=== PATIENT | female | born 1970 | race Caucasian/White ===

== ENCOUNTER 2019-10-07 07:09 | Day surgery (SDC) | payer OTHER ==
[~2019-10-07] VITALS: Ht 157.5 cm; Wt 81.7 kg
[~2019-10-07 07:09] MED LIST: ATENOLOL25 MG PO; ATORVASTATIN CA80 MG PO; B-125000 MC1 PO; COUMADIN5 MG PO; FENOFIBRATE160 MG PO; FOLTABS 800 TA1 EACH PO; IBUPROFEN200 MG PO; LEVOTHYROXINE75 MCG PO; LISINOPRIL2.5 MG PO; LISINOPRIL5 MG PO; METOPROLOL SUCC25 MG PO; NORCO 5-325 TA1 EACH PO; OMEPRAZOLE20 MG PO; POLYTRIM EYE DR10 ML OU; SPORANOX100 MG PO; TERBINAFINE HC250 MG PO; VITAMIN B-6100 MG PO; VITAMIN D350 MCG PO; WARFARIN SODIU2.5 MG PO
--- NOTE | 2019-10-07 08:32 | NUR ---
10/07/19 0832 Marina Ryan 0828 PATIENT ARRIVES TO PACU SLEEPING. OPENS EYES WITH VERBAL STIMULI, ANSWERS QUESTIONS THEN BACK TO SLEEP. RESP EVEN AND UNLABORED, NC AT 2 LITERS.
--- NOTE | 2019-10-07 19:09 | OR ---
[facility] [address] [place], [place] [address] Signed DATE OF OPERATION: 10/07/2019 SURGEON: Chi Golden MD PREOPERATIVE DIAGNOSIS: Screening. POSTOPERATIVE DIAGNOSES: 1. 4 mm polyp at 7 cm. 2. 6 mm polyp at 10 cm. 3. 4 mm polyp at 12 cm. 4. 8 mm polyp, proximal right colon. 5. 4 mm polyp, distal right colon. 6. 4 mm polyp at 70 cm. PROCEDURE: Colonoscopy without biopsy. ESTIMATED BLOOD LOSS: None. INDICATIONS: Dayana is a 49-year-old female who presents for her initial screening colonoscopy. She has no lower GI complaints. There is no family history of colon cancer or polyps. Her boyfriend has been through this previously, so she is somewhat familiar with the process. In the office, I had given her a pamphlet on colonoscopy and we looked at that together along with the risks including, but not limited to gas, bloating, crampy abdominal pain, bleeding, perforation requiring surgery, and missed diagnosis. We also discussed the need for IV conscious sedation. She had expressed understanding and wished to proceed. PROCEDURE NOTE: Dayana was taken into our endoscopy suite and placed in the left lateral decubitus position. She was given IV sedation with 8 mg of Versed and 100 mcg of fentanyl. A digital rectal exam was performed and this was unremarkable. The adult colonoscope was introduced and advanced under direct visualization of camera without difficulty. We could easily see the appendiceal orifice and the ileocecal valve. Her prep was quite good. The scope was slowly withdrawn. The above-mentioned polyps were easily removed with the help of hot biopsy forceps. There was no diverticulosis. The scope had been retroflexed in the rectum. There was no additional pathology noted above the anal Electronically Signed By: CHI GOLDEN MD 10/07/19 1909 PATIENT NAME: DAYANA WRIGHT OPERATIVE REPORT DATE OF : 66 REPORT #: [id number] PHYSICIAN: CHI GOLDEN MD PCP: SYDNEE ALCANTARA MD REPORT IS CONFIDENTIAL AND NOT TO BE RELEASED WITHOUT AUTHORIZATION [facility] [address] [place], [place] [address] Signed canal. After this, the gas was suctioned out and colonoscope removed. Dayana tolerated the procedure quite well. RECOMMENDATIONS: I will see Dayana back in my office in 7 to 14 days to review her results. She can resume the Coumadin in one week. Chi Golden MD ALB/MARIBELL /[id number] cc: Sydnee Alcantara MD Copies: SYDNEE ALCANTARA MD ~ Electronically Signed By: CHI GOLDEN MD 10/07/19 1909 PATIENT NAME: DAYANA WRIGHT OPERATIVE REPORT DATE OF : 66 REPORT #: [id number] PHYSICIAN: CHI GOLDEN MD PCP: SYDNEE ALCANTARA MD REPORT IS CONFIDENTIAL AND NOT TO BE RELEASED WITHOUT AUTHORIZATION
--- NOTE | 2019-10-08 12:18 | PATH ---
[facility] [address] [facility] [place], [place] [address] Signed SPECIMEN(S): A COLON POLYP AT 7 CM SPECIMEN(S): B COLON POLYP AT 10 CM SPECIMEN(S): C PROXIMAL ASCENDING POLYP SPECIMEN(S): D DISTAL ASCENDING POLYP SPECIMEN(S): E COLON POLYP AT 70 CM SPECIMEN(S): F COLON POLYP AT 12 CM SPECIMEN SOURCE: A. COLON POLYP AT 7 CM B. COLON POLYP AT 10 CM C. PROXIMAL ASCENDING POLYP D. DISTAL ASCENDING POLYP E. COLON POLYP AT 70 CM F. COLON POLYP AT 12 CM CLINICAL HISTORY: Screening colonoscopy. DX: Colon/rectal polyps. MICROSCOPIC DESCRIPTION: Histologic sections of all submitted blocks are examined by light microscopy. These findings, together with the gross examination, support the pathologic diagnosis. FINAL PATHOLOGIC DIAGNOSIS: A. Colon, polyp at 7 cm, polypectomy: - Hyperplastic polyp. - Negative for dysplasia or malignancy. B. Colon, polyp at 10 cm, polypectomy: - Hyperplastic polyp. - Negative for dysplasia or malignancy. C. Colon, proximal ascending, polyp, polypectomy: - Tubular adenoma. - Negative for high-grade dysplasia or malignancy. D. Colon, distal ascending, polyp, polypectomy: - Colonic mucosa with no histopathologic abnormality. - Negative for dysplasia or malignancy. E. Colon, polyp at 70 cm, polypectomy: - Colonic mucosa with no histopathologic abnormality. - Negative for dysplasia or malignancy. F. Colon, polyp at 12 cm, polypectomy: - Hyperplastic polyp. - Negative for dysplasia or malignancy. PATIENT NAME: RHIANNON WRIGHT PATHOLOGY DATE OF : 66 REPORT #: [id number] PHYSICIAN: SARMAD HOFFMAN PCP: SYDNEE YUAN MD REPORT IS CONFIDENTIAL AND NOT TO BE RELEASED WITHOUT AUTHORIZATION [facility] [address] [place], [place] [address] Signed NAL:cml:C2NR GROSS DESCRIPTION: Six specimens are received in six containers, labeled "SC." A. The specimen, labeled "SC, colon polyp at 7 cm," is received in formalin and consists of one chávez soft tissue fragment that measures 0.2 cm in greatest dimension. The specimen is entirely submitted in cassette (A1). B. The specimen, labeled "SC, colon polyp at 10 cm," is received in formalin and consists of one chávez soft tissue fragment that measures 0.2 cm in greatest dimension. The specimen is entirely submitted in cassette (B1). C. The specimen, labeled "SC, proximal ascending colon polyp," is received in formalin and consists of two chávez soft tissue fragments that measure 0.3 cm in greatest dimension. The specimen is entirely submitted in cassette (C1). D. The specimen, labeled "SC distal ascending colon polyp," is received in formalin and consists of one chávez soft tissue fragment that measures 0.1 cm in greatest dimension. The specimen is entirely submitted in cassette (D1). E. The specimen, labeled "SC, colon polyp at 70 cm," is received in formalin and consists of two chávez soft tissue fragments that measure 0.1 cm in greatest dimension. The specimen is entirely submitted in cassette (E1). F. The specimen, labeled "SC, colon polyp at 12 cm," is received in formalin and consists of one chávez soft tissue fragment that measures 0.1 cm in greatest dimension. The specimen is entirely submitted in cassette (F1). JS (under the direct supervision of a pathologist) The Gross Description was prepared using a voice recognition system. The report was reviewed for accuracy; however, sound-alike word errors, addition and/or deletions may occur. If there is any question about this report, please contact Client Services. PERFORMING LABORATORY: The technical component was performed by [facility] [address] (Mold Maker Helper: India Way MD; CLIA# [id number]). Professional interpretation was performed by [facility], [address] [address] (CLIA# [id number]). PATIENT NAME: RHIANNON WRIGHT PATHOLOGY DATE OF : 66 REPORT #: [id number] PHYSICIAN: SARMAD HOFFMAN PCP: SYDNEE YUAN MD REPORT IS CONFIDENTIAL AND NOT TO BE RELEASED WITHOUT AUTHORIZATION [facility] [address] [place], [place] [address] Signed Diagnostician: Dulce Brian MD Pathologist Electronically Signed 10/08/2019 Copies: ~ PATIENT NAME: RHIANNON WRIGHT PATHOLOGY DATE OF : 66 REPORT #: [id number] PHYSICIAN: SARMAD PATHOLOGY PCP: SYDNEE YUAN MD REPORT IS CONFIDENTIAL AND NOT TO BE RELEASED WITHOUT AUTHORIZATION
== END 2019-10-07 09:10 | disposition home or self-care (01) ==
LOC: OPS 07:09 → DS 07:09 → OPS 08:15
PROVIDERS: Colon & Rectal Surgery
PROC: 0DBE8ZZ Excision of Large Intestine, Via Natural or Artificial Opening Endoscopic (ICD-10-PCS; 2019-10-07)
PROC: 0DBK8ZZ Excision of Ascending Colon, Via Natural or Artificial Opening Endoscopic (ICD-10-PCS; principal; 2019-10-07 08:15)
DX: Z12.11 Encounter for screening for malignant neoplasm of colon (principal); D12.2 Benign neoplasm of ascending colon; K62.1 Rectal polyp; Z79.899 Other long term (current) drug therapy; Z79.01 Long term (current) use of anticoagulants
CPT/HCPCS: 99153; G0500; J2250; J3010

== ENCOUNTER 2019-11-08 10:53 | Day surgery (SDC) | payer OTHER ==
--- NOTE | 2019-11-08 12:20 | NUR ---
11/08/19 1220 Maya Pro 1213- PT ARRIVES TO PACU AWAKE AND TALKING. PT REPORTS NO PAIN OR NAUSEA. RESP EVEN AND UNLABORED. OXYGEN SAT HIGH 90'S TO 100% ON 2L VIA NC. 1214- OXYGEN TITRATED OFF. 1217- PT IS ABLE TO ROLL HERSELF TO HER BACK AND SAT UP IN BED. PT REPORTS NO DIZZINESS, NAUSEA, OR PAIN. PT DENIES WANTING ANYTHING TO DRINK AT THIS TIME.
--- NOTE | 2019-11-10 18:12 | PATH ---
[facility] [address] [place], [place] [address] Signed SPECIMEN(S): C COMP FLOW CYTOMETRY, BM EDTA SPECIMEN(S): A BONE MARROW - CORE SPECIMEN(S): B BONE MARROW - ASPIRATION CLINICAL HISTORY: 49-year-old woman with polycythemia. D45 (polycythemia vera) DIAGNOSIS SUMMARY: A. Peripheral blood - No significant abnormalities identified. B. Bone marrow, left, aspiration and core biopsy: - Normocellular bone marrow with mild megakaryocytic atypia. - Increased storage iron. - Mild reticulin fibrosis. - See Diagnostic Comment. DIAGNOSTIC COMMENT: The provided patient history of polycythemia is noted. Evaluation of this bone marrow specimen reveals a normocellular bone marrow with estimated overall cellularity of 50%. The megakaryocytes are mildly increased, with mild morphologic atypia. The overall morphologic findings are not diagnostic of a myeloproliferative neoplasm, although the diagnosis is not entirely excluded, and blasts are not increased. Cytogenetic and JAK2 V617F mutation analysis, with reflex testing are pending, and the results will be issued by addendum. Case discussed with Dr. Julian Sullivan on 11/10/2019 at 4:30 p.m. AIC:caw:smn:C2NR PERIPHERAL BLOOD: HEMOGRAM ([facility], 11/08/2019): WBC 6.6 K/uL, RBC 4.16 M/uL, HGB 13.9 g/dL, HCT 40.5%, MCV 97.5 fL, MCH 33 pg, MCHC 34 g/dL, RDW 13.6%, PLT 311 K/uL. MANUAL DIFFERENTIAL COUNT: Segmented neutrophils 54%, band neutrophils 1%, lymphocytes 39%, monocytes 2%, eosinophils 4%. The red blood cells are present in normal number and are normochromic and normocytic with mild anisocytosis. There is no significant poikilocytosis. The white blood cells are present in normal number and are morphologically unremarkable. Circulating blasts are not identified. Platelets are present in normal number and morphology. BONE MARROW: PATIENT NAME: RHIANNON WRIGHT PATHOLOGY DATE OF : 66 REPORT #: [id number] PHYSICIAN: SARMAD HOFFMAN PCP: SYDNEE YUAN MD REPORT IS CONFIDENTIAL AND NOT TO BE RELEASED WITHOUT AUTHORIZATION [facility] [address] [place], [place] [address] Signed BONE MARROW ASPIRATE SMEARS/TOUCH IMPRINT: The aspirate smears contain multiple particles for evaluation, and the erythroid precursors show normoblastic maturation with rare nuclear irregularity. The granulocytic precursors mature to segmented forms without overt dyspoiesis. Blasts are not increased. Megakaryocytes demonstrate variable morphology, including a few scattered small forms. BONE MARROW DIFFERENTIAL COUNT: Blasts 1%, promyelocytes 2%, myelocytes 14%, metamyelocytes 11%, band neutrophils 25%, segmented neutrophils 15%, monocytes 4%, eosinophils 2%, lymphocytes 8%, plasma cells 1%, erythroid precursors 17%, idzygji-je-qgbddgalb ratio 4.4:1. BONE MARROW CORE BIOPSY/ASPIRATE CELL BLOCK: The core biopsy demonstrates areas of aspiration artifact. Where intact, the estimated cellularity is 50%. The megakaryocytes demonstrate variable morphology and are focally clustered. The clot section contains no cellular particles for evaluation. SPECIAL STAINS: - Iron (aspirate smear): Increased storage iron, grade 4 of 4; negative for ring sideroblasts. - Iron (block B1): Scattered positivity; no cellular particles present for evaluation. - Reticulin (block A1): Mild reticulin fibrosis. The special stain controls react appropriately. IMMUNOHISTOCHEMICAL STAINS (block A1): - CD34: No increase in NY19-cnuoxlzb blasts. - CD117: Highlights scattered strongly positive mast cells without significant clustering; subset of myeloid precursors weakly positive. - CD71: Highlights erythroid precursors with predominantly preserved colony architecture. - Myeloperoxidase: Many granulocytic precursors positive. - Factor VIII: Highlights mildly increased megakaryocytes with variable size and focal clustering. AIC:caw:estefany FLOW CYTOMETRY: Bone marrow, flow cytometry: - No increase in UN07-yqfumodv blasts. - No monoclonal B-cell or aberrant T-cell population identified. - See Comment. COMMENT: Flow cytometry of this bone marrow specimen reveals no increase in TS20-cqhcaoaw blasts or immunophenotypic evidence of a non-Hodgkin lymphoid PATIENT NAME: RHIANNON WRIGHT PATHOLOGY DATE OF : 66 REPORT #: [id number] PHYSICIAN: SARMAD PATHOLOGY PCP: SYDNEE YUAN MD REPORT IS CONFIDENTIAL AND NOT TO BE RELEASED WITHOUT AUTHORIZATION [facility] [address] [place], [place] [address] Signed neoplasm. Final interpretation of these results requires correlation with morphologic and clinical findings. AIC:[facility] FLOW CYTOMETRY ANALYSIS: FLOW DIFFERENTIAL (% Total CD45 vs. SSC gating): Myeloid 80%; Lymphoid 10%; Monocyte 2%; Dim CD45/Blast: 0.8%; Cell Count: 5.1 x 10*3/uL. POPULATION ANALYSIS: BLASTS: Analysis of the dim CD45 gate demonstrates less than 1% myeloblasts by CD34/CD117. 2.4% of total events are hematogones. LYMPHOID CELLS: The lymphocyte gate comprises 10% of total events and includes 84% T-cells with a CD4:CD8 ratio of 1.3:1 and normal bean T-cell antigen expression. 9% of lymphocytes are polyclonal B-cells with a kappa:lambda ratio of 1.6:1. The remainders are NK-cells. MYELOID CELLS: The myeloid population comprises 80% of the total events. No aberrant or immature immunophenotypic expression is detected. MONOCYTES: The monocyte population comprises 2% of the total events. Monocytes are not increased. Some increased expression of CD56 is observed. PLASMA CELLS: 0.3% plasma cells are detected in the screening gate neg-dimCD45/CD38. Plasma cells are CD45 dim and positive for CD19. ANTIBODIES USED: KAPPA, LAMBDA, CD20, CD10, CD19, CD23, CD38, FMC7, CD16, CD56, CD8, CD5, CD2, CD4, CD7, CD3, CD14, CD33, CD13, HLADR, CD34, CD117, CD15, CD45: TOTAL ANTIBODIES USED: 24. JNB/DKW FINAL DIAGNOSIS PERFORMED BY: Elida Paulson MD, Pathologist Nov 10 2019 1:13PM CYTOGENETICS: Pending, to be reported by addendum. MOLECULAR / PCR: Pending, to be reported by addendum. GROSS DESCRIPTION: A. The specimen, labeled "Wright, bone core," is received in formalin and consists of four chávez bone core fragments from 0.4-0.6 cm in greatest dimension. It is submitted in cassette (A1) following decalcification in Immun[facility] for 1.5 hours. B. The specimen, labeled "Wright, clot," is received in formalin and consists of a 1.7 x 1.4 x 0.2 cm aggregate of blood clot. It is submitted entirely in cassette (B1). PATIENT NAME: RHIANNON WRIGHT PATHOLOGY DATE OF : 66 REPORT #: [id number] PHYSICIAN: SARMAD PATHOLOGY PCP: SYDNEE YUAN MD REPORT IS CONFIDENTIAL AND NOT TO BE RELEASED WITHOUT AUTHORIZATION [facility] [address] [place], [place] [address] Signed [place] (under the direct supervision of a pathologist) The Gross Description was prepared using a voice recognition system. The report was reviewed for accuracy; however, sound-alike word errors, addition and/or deletions may occur. If there is any question about this report, please contact Client Services. ADDITIONAL NOTES: Immunohistochemical and/or in situ hybridization studies were performed on this case with the appropriate positive controls that react as expected. This test was developed and its performance characteristics determined by [facility]. It has not been cleared or approved by the U.S. Food and Drug Administration. The FDA has determined that such clearance or approval is not necessary. This test is used for clinical purposes. It should not be regarded as investigational or for research. [email or web address] is certified under the Clinical Laboratory Improvement Amendments of 1988 (CLIA) as qualified to perform high complexity clinical laboratory testing. In this case, certain antibodies were performed by both immunohistochemistry and flow cytometry analysis because flow cytometry analysis did not fully explain all the light microscopic findings. Immunohistochemistry aided in the analysis. Both methods are deemed medically necessary in this case. This test was developed and its performance characteristics determined by [email or web address]. It has not been cleared or approved by the US Food and Drug Administration. The FDA does not require this test to go through premarket FDA review. This test is used for clinical purposes. It should not be regarded as investigational or for research. This laboratory is certified under the Clinical Laboratory Improvement Amendments (CLIA) as qualified to perform high complexity clinical laboratory testing. PERFORMING LABORATORY: The technical component of flow cytometry was performed by [email or web address], [address] [place] [address] (Mill Supervisor: Eric Mackey D.O.; CLIA#: [id number]). Professional interpretation was performed by [email or web address], [facility], [address] [place] [address] (Mill Supervisor: Dc Ruiz M.D.; CLIA#: [id number]). The technical component was performed by [email or web address], [address] [place] [address] PATIENT NAME: RHIANNON WRIGHT PATHOLOGY DATE OF : 66 REPORT #: [id number] PHYSICIAN: SARMAD HOFFMAN PCP: SYDNEE YUAN MD REPORT IS CONFIDENTIAL AND NOT TO BE RELEASED WITHOUT AUTHORIZATION [address] [address] [place] [address] (Mill Supervisor: Eric Mackey D.O.; CLIA#: [id number]). Professional interpretation was performed by [email or web address], [facility], [address] [place] [address] (Mill Supervisor: Dc Ruiz M.D.; IA#: [id number]). IMAGES: [id number]: [id number] A: [id number] Diagnostician: Elida Paulson MD Pathologist Electronically Signed 11/10/2019 Copies: ~ PATIENT NAME: RHIANNON WRIGHT PATHOLOGY DATE OF : 66 REPORT #: [id number] PHYSICIAN: SARMAD PATHOLOGY PCP: SYDNEE YUAN MD REPORT IS CONFIDENTIAL AND NOT TO BE RELEASED WITHOUT AUTHORIZATION
== END 2019-11-08 12:45 | disposition home or self-care (01) ==
LOC: OPS 10:53 → DS 10:53 → OPS 12:00
PROVIDERS: ATTEND Specialist
PROC: 079T3ZX Drainage of Bone Marrow, Percutaneous Approach, Diagnostic (ICD-10-PCS; 2019-11-08)
PROC: 07DR3ZX Extraction of Iliac Bone Marrow, Percutaneous Approach, Diagnostic (ICD-10-PCS; principal; 2019-11-08 12:00)
DX: D45 Polycythemia vera (principal); D47.4 Osteomyelofibrosis; I10 Essential (primary) hypertension; E05.00 Thyrotoxicosis with diffuse goiter without thyrotoxic crisis or storm; F17.210 Nicotine dependence, cigarettes, uncomplicated; Z79.899 Other long term (current) drug therapy
CPT/HCPCS: 85025; 99153; G0500; J2250; J3010

== ENCOUNTER 2022-11-14 09:48 | Day surgery (SDC) | payer OTHER, BC ==
[2022-11-11 16:40] VITALS: BP 87/57
[~2022-11-14] VITALS: Ht 157.5 cm; Wt 60.5 kg
[~2022-11-14 09:48] MED LIST changes: +VARENICLINE TART1 MG PO; +XARELTO10 MG PO
[2022-11-14 10:05] VITALS: BP 104/53
--- NOTE | 2022-11-14 15:41 | NUR ---
11/14/22 Jorge1 Uyen Foy 1528- PT ARRIVED TO PACU IN SEMI RIZZO POSITION, PT DROWSY BUT OPENS EYES EASILY TO STIMULU. ALL MONITORS APPLIED. PT DENIES PAIN AND NAUSEA AT THIS TIME. LR INFUSING TO LH IV, DRESSINGS IN PLACE TO RIGHT BREAST. O2 AT 6L PER MASK, SATS 100%. 1530-O2 MASK IS LARGE ON PT FACE, PT PUSHING AROUND. REMOVED AT THIS TIME AND PLACED ON ROOM AIR. WILL CONTINUE TO MONITOR. PT CONTINUES TO HAVE NO COMPLAINTS. RESTING INTERMITTENLY, WAKES AND ANSWERS QUESTIONS APPROPRIATELY.
[2022-11-14] MEDS ORDERED: IBUPROFEN600 MG PO (15:48)
[2022-11-14] MEDS ORDERED: ACETAMINOPHEN500 MG PO (15:48)
[2022-11-14] MEDS ORDERED: OXYCODON-ACETA1 EAC2 PO (15:48)
[2022-11-14 15:56] VITALS: BP 117/45
--- NOTE | 2022-11-14 15:59 | NUR ---
DIDIER 1555: PT IS BACK TO DS FROM PACU. SHE WOULD LIKE WATER AND APPLE SAUCE, WELL A PAIN PILL. SHE REPORTS STILL FEELING SLIGHTLY DROWSY, SHE IS EDUCATED THAT SHE WILL FEEL LIKE THAT THE REST OF THE DAY. CALL LIGHT WITHIN REACH. DC CRITERIA REVIEWED. NO ADDITIONAL NEEDS OR CONCERNS.
[2022-11-14 16:53] VITALS: BP 129/72
--- NOTE | 2022-11-14 16:55 | NUR ---
LE 1620: PT IS GIVEN A PAIN PILL. SHE IS TOLERATING WATER AND APPLE SAUCE. WATER IS REFILLED. LE 1640: PT IS ASSISTED WITH GETTING DRESSED AND PUTTING ON HER CAMISOLE. THIS RN WALKS WITH HER AROUND THE UNIT. SHE WAS INITIALLY A LITTLE LIGHT HEADED, BUT REPORTS FEELING MORE AND MORE CLEAR THE MORE SHE IS UP AND MOVING AROUND. SHE ALSO REPORTS AN IMPROVEMENT IN HER PAIN AT A 4/10. LE 1652: WATER IS REFILLED. PT ASKS QUESTIONS THAT ARE ANSWERED.
--- NOTE | 2022-11-14 17:13 | NUR ---
LE 1705: PT'S IV IS REMOVED. VERBAL AND WRITTEN DC INSTRUCTIONS ARE GIVEN TO THE PT. SHE VERBALIZES UNDERSTANDING. QUESTIONS ARE ASKED AND ANSWERED. LE 1710: SHE AMBULATES TO THE BATHROOM AND IS ABLE TO VOID 100MLS. LE 1720: PT IS TAKEN TO PERSONAL VEHICLE VIA WC. SHE IS ABLE TO TRANSFER HERSELF WITHOUT ISSUES.
--- NOTE | 2022-11-18 08:53 | OR ---
[facility] [address], [place] [address] Signed DATE OF OPERATION: 11/14/2022 SURGEON: Sebas Grider MD PREOPERATIVE DIAGNOSIS: Right upper outer quadrant infiltrating ductal breast carcinoma with lobular features. POSTOPERATIVE DIAGNOSIS: Right upper outer quadrant infiltrating ductal breast carcinoma with lobular features. PROCEDURES: 1. Injection of methylene blue dye for right sentinel lymph node identification. 2. Right deep axillary sentinel lymph node biopsies x3 (+1 additional non-sentinel node. 3. Right needle localized partial mastectomy. ANESTHESIA: General endotracheal, Ralph Felix, BONDED STRAND OPERATOR and Banuelos BONDED STRAND OPERATOR and local 10 mL of 0.25% Marcaine with epinephrine. INDICATIONS: This 52-year-old woman is a patient of Jose Mcgill. She was noted to have an abnormal mammogram on the right side, previously mammogram in 2019 showed no such finding. A focal asymmetry in a group of microcalcification was noted in the right lower breast as well as an ultrasound identified right upper outer quadrant breast mass, this was 1.4 cm sized and hypoechoic in appearance. Biopsies of both areas were undertaken that of the microcalcifications was benign at that of the upper outer quadrant solid mass found to be infiltrating ductal carcinoma with lobular features. She has no family history of breast cancer and no prior breast problems particularly. Her options of management have been reviewed and she opts to undergo breast conservation therapy to include partial mastectomy and sentinel lymph node biopsy and postoperative radiation therapy. She understands the risk of surgery including, but not limited to bleeding, infection, cosmetic deformity, and so on; understanding that she wished to proceed. FINDINGS: The offending lesion was well localized. The needle appeared to pass directly through the lesion, though the hook was somewhat beyond it. Specimen radiograph confirmed the excised specimen to include the identifying clip, wire, and solid lesion. The margin was considered close. An additional margin was taken on the medial superior aspect as there was slight nodularity to the area. The new margin was marked with sutures as Electronically Signed By: SEBAS GRIDER MD 11/18/22 0853 PATIENT NAME: RHIANNON WRIGHT OPERATIVE REPORT DATE OF : 66 REPORT #: [id number] PHYSICIAN: SEBAS GRIDER MD PCP: JOSE MCGILL PAC REPORT IS CONFIDENTIAL AND NOT TO BE RELEASED WITHOUT AUTHORIZATION [facility] [address], [place] [address] Signed well. As regards the axillary lymph nodes, one dominant large blue and "hot" lymph node was identified and two additional smaller hot nodes and one additional minimally active lymph node. There was no gross finding of malignancy in the lymph nodes. She tolerated the procedure well. Notably, the patient has bilateral inverted nipples. The patient has received from radiology suite having undergone right needle localization of the offending upper outer quadrant mass in the right breast. Additionally, radionuclide injection had been undertaken. She was given preoperative antibiotic Ancef and sequential compression device stockings used and heparin had been subcutaneously administered. Notably, the patient has been off Eliquis for the past 48 hours. After satisfactory general endotracheal anesthesia, the right breast, chest wall, and axilla were prepared with a Betadine spray solution and draped sterilely. Interrogation of the right axilla with the C-Trak probe identified an area of maximal uptake, which was lateral to the pectoralis muscle in the mid to upper axillary area. A small transverse incision was made directly over this area. Dissection was carried through the dermis and subcutaneous tissue with electrocautery. Careful application of retractors allowed for identification of several blue lymphatic channels, which led to a dominant lymph node with good blue dye uptake and strong radioactivity signal. This area of soft tissue was excised fully and clips were applied to the lymphatic channels as necessary. This was labeled as sentinel lymph node #1. Additional interrogation of the breast showed two additional lymph nodes that were additionally excised. Clips were applied for hemostasis, that soft tissue was gently dissected ex Vivo showing two obvious sentinel lymph nodes with avid radioactive uptake, but small in size. Subsequently later an additional lymph node was identified, which although minimally active from a radionuclear perspective and with no sign of blue dye uptake, this was labeled with additional axillary lymph node. The wound was then packed with gauze. Attention was turned towards the lesion of the right breast, which was in the superolateral aspect. The wire was emanating from a lateral position. Manipulation of the wire allowed for identification of the probable site of the lesion. Preoperatively, the imaging studies had been reviewed. A curvilinear incision was made along the line of skin tension cephalad and lateral to the areolar margin. Dissection was carried through the dermis with electrocautery. The wire which emanated lateral to this was delivered into the wound in the breast parenchyma and grasped with an Allis clamp. Meticulous care was taken to provide a wide excision using electrocautery. Ultimately, it was found that the wire protruded well beyond the lesion itself. On that basis, an additional medial breast tissue had been excised. Complete excision was undertaken and prior to explantation from the wound, a suture was used to umesh the superior margin and another to the lateral margin. Electronically Signed By: SEBAS GRIDER MD 11/18/22 0853 PATIENT NAME: RHIANNON WRIGHT OPERATIVE REPORT DATE OF : 66 REPORT #: [id number] PHYSICIAN: SEBAS GRIDER MD PCP: JOSE MCGILL PAC REPORT IS CONFIDENTIAL AND NOT TO BE RELEASED WITHOUT AUTHORIZATION [facility] [address] [place], [place] [address] Signed Palpation within the excised specimen demonstrated the mass to be well skewered by the localizing wire. Palpation also indicated possible close margin in the superolateral aspect. On that basis that tissue corresponding to the area was additionally excised widely and the new margin marked with a suture. By this point, the pathology report returned confirming the lesion in question has been excised based on specimen radiograph. Irrigation was undertaken with sterile water. Careful inspection allowed for hemostasis with electrocautery as appropriate. Some Gris powdered hemostatic agent was applied to the wound cavity as well. Once hemostasis was considered complete. Multiple episodes of irrigation with sterile water had been used during the course of this endeavor. The breast parenchyma was reapproximated with interrupted 2-0 Vicryl suture. The deep dermal layer similarly reapproximated and the skin closed with running subcuticular 3-0 Vicryl. Note is made that an inverted nipple was noted preoperatively bilaterally. Steri-Strips were applied to the incision itself. Attention was turned to the right axillary wound. Examination internally showed no sign of bleeding or other problem. This wound was closed in layers with interrupted 2-0 Vicryl and a running subcuticular 3-0 Vicryl for the skin. Both wounds were secured with Acticoat dressings at conclusion of the procedure. She was transferred to the recovery room in good condition having suffered no complications. Sponge, needle, and instrument counts were reported as correct x3. MD MISTI Degroot/MOE /[id number] cc: Jose Mcgill Copies: ~ Electronically Signed By: SEBAS GRIDER MD 11/18/22 0853 PATIENT NAME: RHIANNON WRIGHT OPERATIVE REPORT DATE OF : 66 REPORT #: [id number] PHYSICIAN: SEBAS GRIDER MD PCP: JOSE MCGILL PAC REPORT IS CONFIDENTIAL AND NOT TO BE RELEASED WITHOUT AUTHORIZATION
--- NOTE | 2022-12-16 17:58 | PATH ---
[facility] [address] [facility] [place], [place] [address] Signed THIS IS AN ADDENDUM REPORT SPECIMEN(S): A BREAST SENTINEL LYMPH NODE #1 SPECIMEN(S): B BREAST SENTINEL LYMPH NODE #2 + #3 SPECIMEN(S): C RIGHT UPPER OUTER QUADRANT BREAST SPECIMEN(S): D RIGHT ADDITIONAL LATERAL MARGIN SPECIMEN(S): E ADDITIONAL AXILLARY LN SPECIMEN SOURCE: A. BREAST SENTINEL LYMPH NODE #1 B. BREAST SENTINEL LYMPH NODE #2 + #3 C. RIGHT UPPER OUTER QUADRANT BREAST D. RIGHT ADDITIONAL LATERAL MARGIN E. ADDITIONAL AXILLARY LN CLINICAL HISTORY: Infiltrating ductal carcinoma, right breast. FINAL PATHOLOGIC DIAGNOSIS: A. Breast sentinel lymph node #1: - One of two lymph nodes positive for metastatic carcinoma (1/2). - Size of largest tumor deposit: 3 mm. - Extracapsular extension: Not identified. - CK AE1/3 immunostain is pending (see comment). B. [place] lymph node #2 and #3: - Two lymph nodes, negative for metastatic carcinoma (0/2). - CK AE1/3 immunostain is pending (see comment). C. Right upper outer quadrant breast, lumpectomy: - Invasive breast carcinoma with ductal and lobular features: - Procedure: Excision (<total mastectomy). - Specimen laterality: Right breast. - Tumor site: Upper outer quadrant. - Histologic type: Invasive carcinoma of no special type (ductal). - Histologic grade (Radha histologic score): - Glandular / tubular differentiation score: 3/3. - Nuclear pleomorphism score: 3/3. - Mitotic rate score: 2/3. - Overall grade: III/III (score 8/9). - Tumor size: - Greatest dimension of largest invasive focus >1 mm: 24 x 20 x 14 PATIENT NAME: DAYANA WRIGHT PATHOLOGY DATE OF : 66 REPORT #: [id number] PHYSICIAN: SARMAD HOFFMAN PCP: JOSE MCGILL PAC REPORT IS CONFIDENTIAL AND NOT TO BE RELEASED WITHOUT AUTHORIZATION [facility] [address] [place], [place] [address] Signed mm. - Tumor focality: Single focus of invasive carcinoma. - Ductal carcinoma in situ: Present. - Size of DCIS (estimated size extent of DCIS) is at least: 1 mm. - Architectural pattern: Cribriform. - - Nuclear grade: Grade 2 (intermediate). - Necrosis: Not identified. - Number of blocks with DCIS: 1. - Number of blocks examined: 13. -- Lobular carcinoma in situ: Not identified. - Lymphatic and/or vascular invasion: Present (C1). -- Microcalcifications: Present in DCIS. - Treatment effect in breast: No known presurgical therapy. -- Margin status for invasive carcinoma: All margins negative for invasive carcinoma. - Distance of invasive carcinoma to closest margin: 5 mm (anterior / inferior). -- Margin status for DCIS: All margins negative for DCIS. - Distance from DCIS to closest margin: >10 mm to the superior margin. - Regional lymph nodes: Tumor present in regional lymph nodes. - Number of lymph nodes with macrometastasis (>2 mm): 1 lymph node. - Number of lymph nodes with micrometastasis or isolated tumor cells: 0. - Size of largest manju metastatic deposit: 3 mm. - Extranodal extension: Not identified. - Total number of lymph nodes examined: 4 lymph nodes. - Number of sentinel lymph nodes examined: 4 lymph nodes. - Distant metastasis: Not applicable. -- pTNM classification (AJCC eight edition): pT2, (sn)pN1a, pMX. - Special studies: - Breast biomarker testing performed on previous biopsy (please see case [id number]) which was reported as ER positive (95%), VT positive (30-40%), HER2 negative by IHC. D. Right additional lateral margin: - Benign breast tissue, negative for carcinoma. E. Additional axillary lymph node: - Benign adipose and vascular tissue, negative for lymph node or carcinoma. COMMENT: PATIENT NAME: DAYANA WRIGHT PATHOLOGY DATE OF : 66 REPORT #: [id number] PHYSICIAN: SARMAD PATHOLOGY PCP: JOSE MCGILL PAC REPORT IS CONFIDENTIAL AND NOT TO BE RELEASED WITHOUT AUTHORIZATION [address] [address] Signed Cytokeratin immunostains are pending and the lymph node tumor status is preliminary, based on the HE stains. An addendum will be added with the immunostain results and any updates to the lymph node status that may be necessary. As part of [facility]' Quality Improvement Program, this case was reviewed by another member of our pathology staff. JVR:CACHORRO:[facility] MICROSCOPIC EXAMINATION: Histologic sections of all submitted blocks are examined by light microscopy. These findings, together with the gross examination, support the pathologic diagnosis. CK AE1/3 immunostain on block (A2) is pending to be reported by addendum. CK AE1/3 immunostain on blocks (A1 and B1) and are pending to be reported by addendum. JVR:[facility] GROSS DESCRIPTION: A. The specimen, labeled and designated "Vicky, sentinel lymph node #1," is received in formalin and consists of one yellow-chávez fibroadipose tissue fragment that measure 2.9 x 2.5 x 1.2 cm. Sectioning through the specimen reveal two possible lymph nodes that measure 1.5 and 2.0 cm in greatest dimension. Both lymph nodes show blue discoloration. They are bisected and entirely and separately submitted in (A1-A2). B. The specimen, labeled and designated "Vicky, sentinel lymph node #2 and #3," is received in formalin and consists of fibroadipose tissue fragment that measure 4.1 x 3.0 x 0.2 cm. 2 black stitches persaud sentinel lymph nodes per the requisition. Two possible sentinel lymph nodes are identified close to the stitches and measure 1.2 x 0.7 x 0.7 cm and 0.1 cm in diameter. The smaller possible lymph node is inked and entirely submitted. The bigger possible lymph node is bisected and entirely submitted in (B1). C. The specimen, labeled and designated "Vicky, right upper outer quadrant breast," is received in formalin and consists of fibroadipose yellow-chávez tissue fragment that measure 7.0 x 6.2 x 3.5 cm. The specimen weighs 72 g. Specimen is oriented: Long stitch-lateral, short stitch-superior. Inferior margin is disrupted. Specimen is inked: Superior-blue, inferior-green, lateral-orange, medial-red, anterior-yellow, posterior-black. The species is serially sectioned from lateral to medial into 16 slices. Sectioning through the PATIENT NAME: DAYANA WRIGHT PATHOLOGY DATE OF : 66 REPORT #: [id number] PHYSICIAN: SARMAD PATHOLOGY PCP: JOSE MCGILL PAC REPORT IS CONFIDENTIAL AND NOT TO BE RELEASED WITHOUT AUTHORIZATION [facility] [address] [place], [place] [address] Signed specimen to reveal chatman-white, ill-defined lesion that measure 2.4 x 2.0 x 1.4 cm. Sectioning through the mass reveals chatman-white, gritty surface. The lesion is 0.8 cm from the lateral margin, 3.5 cm from the medial margin, 2.4 cm from posterior margin, 1.8 cm from anterior margin, 0.7 cm from superior margin and 0.7 cm from inferior margin. Metal coiled wire biopsy clip is identified in slice #8. Fibrous tissue is approximately 15% of the specimen. The remainder the of the specimen is regular fibroadipose tissue. Cassette Summary: (C1) mass around biopsy clip, textile designs sales representative section (C2) mass to inferior margin (C3) mass to superior margin (C4) tissue adjacent to the mass, textile designs sales representative section (C5) posterior margin closest to the mass (C6) anterior margin closest to the mass (C7) lateral margin, perpendicular section (C8) medial margin, perpendicular section D. The specimen, labeled and designated "Vicky, additional lateral margin," is received in formalin and consists of yellow-chávez, fibroadipose tissue that measure 4.7 x 3.3 x 1.5 cm. The specimen weighs 14 g. The new margin is marked with 3 black stitches. The new margin is inked black and the rest of the specimen is inked blue. Sectioning through the specimen reveal pink-chávez fibrous tissue that measure 0.9 x 0.9 x 0.7 cm. The fibrous tissue is 0.2 cm from the new resection margin. The fibrous tissue with the new margin is entirely submitted in (D1-D5). E. The specimen, labeled and designated "Vicky, additional axillary lymph node," is received in formalin and consists of one yellow-chávez fibroadipose tissue fragment that measure 1.5 x 0.8 x 0.5 cm. Sectioning through the specimen reveals irregular adipose tissue. Lymph nodes are not grossly identified. Entirely submitted in (E1). Cold ischemic time: Cannot be determined because of lack of information. Approximate time in formalin: More than 30 and less than 38 hours JS (under the direct supervision of a pathologist) The Gross Description was prepared using a voice recognition system. The report was reviewed for accuracy; however, sound-alike word errors, addition and/or deletions may occur. If there is any question about this report, please contact Client Services. PERFORMING LABORATORY: PATIENT NAME: DAYANA WRIGHT PATHOLOGY DATE OF : 66 REPORT #: [id number] PHYSICIAN: SARMAD HOFFMAN PCP: JOSE MCGILL PAC REPORT IS CONFIDENTIAL AND NOT TO BE RELEASED WITHOUT AUTHORIZATION [address] [address] Signed Technical component was performed by [facility], [address] [place] [id number] (CLIA# [id number]). ADDITIONAL NOTES: Immunohistochemical and/or in situ hybridization studies were performed on this case with the appropriate positive controls that react as expected. This test was developed and its performance characteristics determined by [facility]. It has not been cleared or approved by the U.S. Food and Drug Administration. The FDA has determined that such clearance or approval is not necessary. This test is used for clinical purposes. It should not be regarded as investigational or for research. [facility] is certified under the Clinical Laboratory Improvement Amendments of 1988 (CLIA) as qualified to perform high complexity clinical laboratory testing. This assay has not been validated for specimens that have been decalcified. PERFORMING LABORATORY: Professional interpretation was performed by [facility], [address] [place] [phone] (CLIA#: [id number]). REASON FOR ADDENDUM: The purpose of the addendum is to report the results of cytokeratin AE1/AE3 immunostains. ADDENDUM COMMENT: Cytokeratin AE1/AE3 immunostains are performed with appropriate controls and show the following: - Block A1: - Cytokeratin AE1/AE3: Negative for metastatic carcinoma. - Block A2: - Cytokeratin AE1/AE3: Positive for metastatic carcinoma. - Block B1: - Cytokeratin AE1/AE3: Negative for metastatic carcinoma. The original diagnostic features remain unchanged. KRISTA:tashar REASON FOR ADDENDUM: To document review of material for external testing. ADDENDUM COMMENT: At the request of Dr. Julian Sullivan, archived slides and blocks for case PATIENT NAME: DAYANA WRIGHT PATHOLOGY DATE OF : 66 REPORT #: [id number] PHYSICIAN: SARMAD HOFFMAN PCP: JOSE MCGILL PAC REPORT IS CONFIDENTIAL AND NOT TO BE RELEASED WITHOUT AUTHORIZATION [facility] [address] [place] [place] [address] Signed are retrieved on Dayana Wright and are reviewed by a pathologist to assess adequacy for Oncotype for Breast testing. Block C1 is sent to [facility]. NA:slc Professional interpretation was performed by [facility], [address] [place] [address] (CLIA# [id number]). REASON FOR ADDENDUM: To add results of additional testing. ADDENDUM PATHOLOGIC DIAGNOSIS: - Oncotype DX breast cancer recurrence score: 22 - Distant recurrence risk at 9 years: 18% - Group average absolute chemotherapy benefit: CT Benefit for this group cannot be excluded. - Quantitative ER score: Positive (9.0) - Quantitative VT score: Positive (6.0) - Quantitative HER-2 score: Negative (8.2) The technical and professional components of the Oncotype DX testing were performed at [facility] ([place], [place], case # [id number]). Detailed report is kept on file. Diagnostician: Rene Chinchilla MD Pathologist Diagnostician: Dru Esquivel MD Pathologist Electronically Signed 12/16/2022 Copies: ~ PATIENT NAME: DAYANA WRIGHT PATHOLOGY DATE OF : 66 REPORT #: [id number] PHYSICIAN: SARMAD HOFFMAN PCP: JOSE MCGILL PAC REPORT IS CONFIDENTIAL AND NOT TO BE RELEASED WITHOUT AUTHORIZATION
== END 2022-11-14 17:20 | disposition home or self-care (01) ==
LOC: DS 09:48 → EDSTATUS 11:00 → US 11:00 → DS 17:20
PROVIDERS: ATTEND Surgery
PROC: 0HBT0ZZ Excision of Right Breast, Open Approach (ICD-10-PCS; principal; 2022-11-14 13:00)
PROC: 07B50ZZ Excision of Right Axillary Lymphatic, Open Approach (ICD-10-PCS; 2022-11-14 13:00)
DX: C50.411 Malignant neoplasm of upper-outer quadrant of right female breast (principal); C77.3 Secondary and unspecified malignant neoplasm of axilla and upper limb lymph nodes; E03.9 Hypothyroidism, unspecified; K21.00 Gastro-esophageal reflux disease with esophagitis, without bleeding; I10 Essential (primary) hypertension; F17.210 Nicotine dependence, cigarettes, uncomplicated; H34.9 Unspecified retinal vascular occlusion; Z79.890 Hormone replacement therapy; Z79.899 Other long term (current) drug therapy; Z79.01 Long term (current) use of anticoagulants
CPT/HCPCS: 00400; 19285; 76098; 77065; 78195; A9541; J0131; J0690; J1100; J1644; J1885; J2001; J2405; J2704; J3010; J3475; J3490; J7121; Q9968

== ENCOUNTER 2025-01-21 13:54 | Emergency (ER) | payer OTHER, BC ==
[~2025-01-21] VITALS: Ht 157.5 cm; Wt 59.4 kg
[~2025-01-21 13:54] MED LIST changes: +ACETAMINOPHEN500 MG PO; +IBUPROFEN600 MG PO; +OXYCODON-ACETA1 EAC2 PO
[2025-01-21] MEDS ORDERED: LEVOTHYROXINE50 MCG PO (14:27)
[2025-01-21] MEDS ORDERED: LETROZOLE2.5 MG PO (14:27)
[2025-01-21] MEDS ORDERED: XARELTO20 MG PO (14:28)
[2025-01-21 15:47] LABS: BASOPHILS 0.6 % (0.1-1.2); EOSINOPHILS 1.6 % (0.7-5.8); LYMPHOCYTES 26.8 % (19.3-51.7); MCH 34.6 PG (25.6-32.2); MCHC 35.1 g/dL (32.2-35.5); MCV 98.7 fL (79.4-94.8); MONOCYTES 8.2 % (4.7-12.5); NEUTROPHILS 62.5 % (34.0-71.1); RBC 3.73 M/uL (3.93-5.22)
[2025-01-21 16:16] LABS: ALT (SGPT) 16.0 U/L (14-59); AST (SGOT) 16.0 U/L (15-37); GLOMERULAR FILTRATION RATE,EST 83.0 mL/min (>60); PROTEIN, TOTAL 7.6 g/dL (6.4-8.2); UREA NITROGEN 18.0 mg/dL (7-18)
[2025-01-21 16:51] LABS: ERYTHROCYTE SEDIMENTATION RATE 22
[2025-01-21] MEDS ORDERED: PREDNISONE20 MG PO (17:10)
[2025-01-21] MEDS ORDERED: predniSONE 20 MG TAB PO ONE (17:15)
[2025-01-21 17:25] VITALS: BP 138/68
== END 2025-01-21 17:27 | disposition home or self-care (01) ==
LOC: ED 13:54
PROVIDERS: Emergency Medicine
DX: L95.9 Vasculitis limited to the skin, unspecified (principal); F17.200 Nicotine dependence, unspecified, uncomplicated; Z79.899 Other long term (current) drug therapy
CPT/HCPCS: 36415; 80053; 85025; 85651; 86140; 99283; J7512